=== PATIENT | male | born 1975 | race Caucasian/White ===

== ENCOUNTER 2024-02-05 22:44 | Emergency (ER) | payer OTHER, SELFPAY ==
[2024-02-05] VITALS (10 sets, daily range): BP systolic 129–182; BP diastolic 84–129; PULSE 83–94; TEMP 36.4; O2SAT 95–100; BMI 44.1
--- NOTE | 2024-02-05 23:10 | ED.CHESTPAI1 ---
HPI - Chest Pain General Chief Complaint: Chest Pain Stated Complaint: Chest Pain, Hypertension Time Seen by Provider: 02/05/24 23:07 Source: patient Mode of arrival: walk-in Limitations: no limitations History of Present Illness HPI narrative: This 48-year-old male is transferred from [facility] for evaluation of left-sided chest pain and high blood pressure. The patient states he has had a life of drug and alcohol abuse. He states that starting in his 20s he was using cocaine and then in his 30s he switched to opiates and in his 40s he was on Suboxone for approximately 7 years and stopped using opiates with occasional exceptions and started drinking alcohol and taking benzos. He has been at [facility] for 1 week and is currently detoxed off of alcohol and benzos. His blood pressure was noted to be elevated today and he was given hydroxyzine and losartan. He states that after he was given that he started to become anxious and had left-sided chest pain and began sweaty. He did not become short of breath dizzy or syncopal. He has no lower extremity pain or swelling. He request that his liver function test be checked in addition to his other blood work. He is not having any chest pain upon arrival and his blood pressure has come down to 140/100. He admits to tobacco use as well as substance abuse and alcoholism. He states he does not have a family physician in [place] where he lives and has never had a cardiac workup. At this time he denies any chest pain, he denies any dizziness shortness of breath, abdominal or back pain. He has been at [facility] for 1 week and intends to spend the next 3 weeks there as well to finish his rehab. Related Data Home Medications ?Medication ?Instructions ?Recorded ?Confirmed amlodipine 10 mg tablet 10 mg PO DAILY 02/05/24 02/05/24 clonidine HCl 0.1 mg tablet 0.1 mg PO Q8H PRN hypertensive 02/05/24 02/05/24 emergency hydroxyzine pamoate 25 mg capsule 25 mg PO Q6H PRN anxiety 02/05/24 02/05/24 ibuprofen 800 mg tablet 800 mg PO Q12H PRN pain 02/05/24 02/05/24 losartan 100 1 tab PO DAILY 02/05/24 02/05/24 mg-hydrochlorothiazide 12.5 mg tablet melatonin 10 mg tablet 10 mg PO DAILY PRN sleep 02/05/24 02/05/24 omeprazole 20 mg capsule,delayed 20 mg PO DAILY 02/05/24 02/05/24 release vitamin B complex and vitamin C 1 cap PO DAILY 02/05/24 02/05/24 no.20-folic acid 1 mg capsule (Xactium) Allergies Allergy/AdvReac Type Severity Reaction Status Date / Time paroxetine AdvReac Mild Depression Verified 02/05/24 22:57 Review of Systems ROS Status of ROS 10 or more systems reviewed and unremarkable except as noted in history and below PFSH PFSH Social History Little interest or pleasure in doing things: not at all Feeling down, depressed, or hopeless: not at all Exam Narrative Exam Narrative: Vital signs and Nursing Notes reviewed: Patient is afebrile with a normal pulse, blood pressure is elevated at 140/100, he is not hypoxic with pulse ox of 95% on room air General: Awake, alert, oriented, obese male, no respiratory distress HEENT: Normocephalic atraumatic, mucous membranes are moist and pink, eyes are clear, normal conjunctiva, vision is grossly intact Neck: Supple, no meningeal signs, no anterior or posterior cervical lymphadenopathy, no JVD Chest: Lungs are clear to auscultation with good air entry, there is no wheezing rhonchi or rales appreciated no accessory muscle use, patient is speaking in complete sentences-no chest wall tenderness to palpation CVS: Regular rate and rhythm S1-S2, no murmurs rubs or gallops, pulses are brisk and equal bilaterally ABD: Soft, nondistended, nontender, no rebound guarding or rigidity, bowel sounds are normal, no pulsatile masses appreciated Extremities: Moving all extremities, no lower extremity tenderness or swelling noted, negative Homans' sign, pulses are brisk and equal bilaterally Skin: Normal in appearance without rash,pallor, petechiae or purpura Neuro: No focal deficits, no tremors or signs of withdrawal Constitutional Vital Signs, click to edit/add: Last Vital Signs Temp 97.5 F L 02/05/24 22:48 Pulse 88 02/06/24 00:30 Resp 18 02/06/24 00:30 BP 142/89 H 02/06/24 00:30 Pulse Ox 96 02/06/24 00:30 O2 Del Method Room Air 02/05/24 23:13 Course Vital Signs Vital signs: Vital Signs Temperature 97.5 F L 02/05/24 22:48 Pulse Rate 94 H 02/05/24 22:48 Respiratory Rate 20 02/05/24 22:48 Blood Pressure 182/129 H 02/05/24 22:48 Pulse Oximetry 98 02/05/24 22:48 Oxygen Delivery Method Room Air 02/05/24 22:48 Temperature 97.5 F L 02/05/24 22:48 Pulse Rate 88 02/06/24 00:30 Respiratory Rate 18 02/06/24 00:30 Blood Pressure 142/89 H 02/06/24 00:30 Pulse Oximetry 96 02/06/24 00:30 Oxygen Delivery Method Room Air 02/05/24 23:13 MDM - Chest Pain MDM Narrative Medical decision making narrative: This 48-year-old male who is at [facility] for alcohol and benzodiazepine addiction presents for evaluation of chest pain and elevated blood pressure. The patient recently finished his detox program for alcohol and benzos. He was on Librium until yesterday. Earlier this evening when they were checking his vital signs his vital signs were elevated. He then told the staff that he had been having left-sided chest pain for 3 days. He had been given losartan and hydroxyzine prior to arrival. Upon arrival his elevated blood pressure had improved and his chest pain had resolved. EKG done upon arrival was a normal sinus rhythm with no acute findings. An IV was placed and he was medicated with 324 baby aspirin and routine labs were ordered and are reviewed. He has a normal white count and hemoglobin. Electrolytes are normal. He does have a mildly elevated AST and ALT in keeping with his history of alcohol dependence. He does have a normal BUN creatinine and bilirubin. Troponin is normal. Delta troponin is normal and D-dimer is normal. Chest x-ray was negative for acute findings. He was only medicated with the baby aspirin in the emergency department and his blood pressure has come down to 142/89. It has been as low as 129/84. The results of all of his labs and his blood pressure readings and EKG and chest x-ray were discussed with him and he feels comfortable being return to the rehab facility for further evaluation and treatment. Medical Records Data Medical records narrative: The [address] [address] XRay Report Signed Patient: ANGELIKA CEDEÑO MR#: [id number] : 1975 Acct:[id number] Age/Sex: 48 / M ADM Date: 02/05/24 Loc: ER Attending Dr: Ordering Physician: Bessy Pastrana Date of Service: 02/05/24 Procedure(s): XR chest 1V Accession Number(s): [id number] cc: Bessy Marker; Physician,Non-Staff M.D.~ [facility] [place] [id number] Patient Name: ANGELIKA CEDEÑO MRN: [id number] date: 1975 Sex: M Assigned Patient Location: ER Current Patient Location: ER Accession/Order Number: [id number] Exam Date: 02/05/2024 23:20 Report Date: 02/06/2024 00:06 At the request of: BESSY MARKER Procedure: XR chest 1V XR chest 1V 02/05/2024 11:20 PM EDT CLINICAL INDICATION: Chest pain COMPARISON: None. TECHNIQUE: Portable semiupright AP view of the chest. FINDINGS: There are no tubes or implants noted. The cardiomediastinal silhouette and pulmonary vasculature are within normal limits. No focal parenchymal opacities. No pneumothorax or pleural effusion. No displaced rib fractures. Osseous structures demonstrate degenerative changes. Soft tissues are grossly normal. XR/XR chest 1V IMPRESSION: No acute cardiopulmonary abnormality. Lab Data Labs: Lab Results 02/05/24 02/06/24 Range/Units 23:05 01:00 WBC 5.7 (4.0-11.0) 10^3/uL RBC 5.20 (4.70-6.10) 10^6/uL Hgb 16.5 (14.0-18.0) g/dL Hct 47.7 (42.0-54.0) % MCV 91.7 (80.0-94.0) fL MCH 31.7 (25.9-34.0) pg MCHC 34.6 (29.9-35.2) g/dL RDW 12.8 (11.0-15.0) % Plt Count 233 (150-450) 10^3/uL MPV 10.1 (9.5-13.5) fL Neut % (Auto) 39.3 L (43.0-75.0) % Lymph % (Auto) 39.1 (20.5-60.0) % [place] % (Auto) 15.6 H (1.7-12.0) % Eos % (Auto) 4.2 (0.9-7.0) % Baso % (Auto) 1.6 (0.2-2.0) % Neut # (Auto) 2.2 (1.4-6.5) 10^3/uL Lymph # (Auto) 2.2 (1.2-3.8) 10^3/uL [place] # (Auto) 0.9 H (0.3-0.8) 10^3/uL Eos # (Auto) 0.2 (0.0-0.7) 10^3/uL Baso # (Auto) 0.1 (0.0-0.1) 10^3/uL Abs Immat Gran (auto) 0.01 (0.00-0.03) 10^3/uL Imm/Tot Granulo (auto) 0.2 (0.0-0.5) % D-Dimer 0.37 (<=0.59) mg/L FEU Sodium 135 L (136-145) mmol/L Potassium 3.9 (3.5-5.1) mmol/L Chloride 100 (98-107) mmol/L Carbon Dioxide 26.3 (21.0-32.0) mmol/L Anion Gap 12.6 BUN 14.0 (7.0-18.0) mg/dL Creatinine 0.91 (0.70-1.30) mg/dL Est GFR ( Amer) >60 (>=60) Est GFR (Non-Af Amer) >60 (>=60) BUN/Creatinine Ratio 15.4 Glucose 104 (74-106) mg/dL Calcium 9.0 (8.5-10.1) mg/dL Total Bilirubin 0.4 (0.2-1.0) mg/dL AST 60 H (15-37) U/L ALT 126 H (16-63) U/L Alkaline Phosphatase 71 (46-116) U/L Troponin I High Sens 14.4 15.2 (4.0-76.1) pg/mL Total Protein 7.5 (6.4-8.2) g/dL Albumin 3.5 (3.4-5.0) g/dL Globulin 4.0 g/dL Albumin/Globulin Ratio 0.9 ECG Data Attestation: I personally reviewed and interpreted this ECG as follows: (Sinus rhythm at 90 bpm, normal axis, nonspecific ST changes, no acute ST segment elevation or T wave inversion) Heart Score History: Moderately Suspicious ECG: Normal Age: >45-<65 years Risk Factors: 1 or 2 Risk Factors Troponin: <Normal Limit Total Heart Score Recommendations & Risks:: 3 Discharge Plan Discharge Chief Complaint: Chest Pain Clinical Impression: Chest pain, Elevated blood pressure reading Patient Disposition: Home, Self-Care Time of Disposition Decision: 01:38 Condition: Good Prescriptions / Home Meds: No Action ibuprofen 800 mg tablet 800 mg PO Q12H PRN (Reason: pain) losartan-hydrochlorothiazide 100-12.5 mg tablet 1 tab PO DAILY clonidine HCl 0.1 mg tablet 0.1 mg PO Q8H PRN (Reason: hypertensive emergency) amlodipine 10 mg tablet 10 mg PO DAILY melatonin 10 mg tablet 10 mg PO DAILY PRN (Reason: sleep) omeprazole 20 mg capsule,delayed release(DR/EC) 20 mg PO DAILY hydroxyzine pamoate 25 mg capsule 25 mg PO Q6H PRN (Reason: anxiety) Wescaps 1 mg capsule 1 cap PO DAILY Print Language: Kyrgyz Instructions: Chest Pain (ED), Hypertension (ED) Referrals: Physician,Non-Staff, MD [Primary Care Provider] - 1 week
--- NOTE | 2024-02-05 23:16 | XR_ITS ---
[facility] [place] [id number] Patient Name: ANGELIKA CEDEÑO MRN: [id number] date: 1975 Sex: M Assigned Patient Location: ER Current Patient Location: ER Accession/Order Number: [id number] Exam Date: 02/05/2024 23:20 Report Date: 02/06/2024 00:06 At the request of: BESSY MARKER Procedure: XR chest 1V XR chest 1V 02/05/2024 11:20 PM EDT CLINICAL INDICATION: Chest pain COMPARISON: None. TECHNIQUE: Portable semiupright AP view of the chest. FINDINGS: There are no tubes or implants noted. The cardiomediastinal silhouette and pulmonary vasculature are within normal limits. No focal parenchymal opacities. No pneumothorax or pleural effusion. No displaced rib fractures. Osseous structures demonstrate degenerative changes. Soft tissues are grossly normal. XR/XR chest 1V IMPRESSION: No acute cardiopulmonary abnormality. Electronically authenticated by: KEI VILLAVICENCIO Date: 02/06/2024 00:06
[2024-02-05 23:22] LABS: Basophils Absolute Auto 0.1 10^3/uL (0.0-0.1); Basophils Percent Auto 1.6 % (0.2-2.0); Eosinophils Absolute Auto 0.2 10^3/uL (0.0-0.7); Eosinophils Percent Auto 4.2 % (0.9-7.0); Hematocrit 47.7 % (42.0-54.0); Hemoglobin 16.5 g/dL (14.0-18.0); Immature Granulocytes Abs Auto 0.01 10^3/uL (0.00-0.03); Immature Granulocytes Pct Auto 0.2 % (0.0-0.5); Lymphocytes Absolute Auto 2.2 10^3/uL (1.2-3.8); Lymphocytes Percent Auto 39.1 % (20.5-60.0); Mean Corpuscular HGB Conc 34.6 g/dL (29.9-35.2); Mean Corpuscular Hemoglobin 31.7 pg (25.9-34.0); Mean Corpuscular Volume 91.7 fL (80.0-94.0); Mean Platelet Volume 10.1 fL (9.5-13.5); Monocytes Absolute Auto 0.9 10^3/uL (0.3-0.8); Monocytes Percent Auto 15.6 % (1.7-12.0); Neutrophils Absolute Auto 2.2 10^3/uL (1.4-6.5); Neutrophils Percent Auto 39.3 % (43.0-75.0); Platelet Count 233 10^3/uL (150-450); Red Cell Distribution Width 12.8 % (11.0-15.0); White Blood Count 5.7 10^3/uL (4.0-11.0)
[2024-02-05] MEDS: ASPIRIN 81 MG TAB.CHEW 324 MG PO (23:32)
[2024-02-05] MEDS: 0.9 % SODIUM CHLORIDE 1,000 ML 125 ML IV (23:33)
[2024-02-05 23:42] LABS: D Dimer 0.37 mg/L FEU (<=0.59)
[2024-02-05 23:43] LABS: Alanine Aminotransferase 126 U/L (16-63); Albumin Globulin Ratio 0.9; Albumin Level 3.5 g/dL (3.4-5.0); Alkaline Phosphatase 71 U/L (46-116); Anion Gap 12.6; Aspartate Amino Transferase 60 U/L (15-37); BUN Creatinine Ratio 15.4; Bilirubin Total 0.4 mg/dL (0.2-1.0); Carbon Dioxide 26.3 mmol/L (21.0-32.0); Chloride 100 mmol/L (98-107); Estimated GFR (African America >60 (>=60); Estimated GFR (Non-African Ame >60 (>=60); Glucose 104 mg/dL (74-106); Potassium 3.9 mmol/L (3.5-5.1); Sodium 135 mmol/L (136-145); Total Protein 7.5 g/dL (6.4-8.2)
[2024-02-05 23:46] LABS: Troponin I High Sensitivity 14.4 pg/mL (4.0-76.1)
[2024-02-06] VITALS (10 sets, daily range): BP systolic 134–147; BP diastolic 82–96; PULSE 79–88; O2SAT 96–98
[2024-02-06 01:28] LABS: Troponin I High Sensitivity 15.2 pg/mL (4.0-76.1)
--- NOTE | 2024-02-06 01:53 | PC.NURSE ---
Report called to [facility].
--- NOTE | 2024-02-06 05:46 | ECG_ITS ---
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
== END 2024-02-06 02:14 | disposition home or self-care (01) ==
PROVIDERS: Emergency Provider Emergency Medicine
DX: R07.9 Chest pain, unspecified (principal); I10 Essential (primary) hypertension; F10.20 Alcohol dependence, uncomplicated; F13.20 Sedative, hypnotic or anxiolytic dependence, uncomplicated; F17.200 Nicotine dependence, unspecified, uncomplicated
CPT/HCPCS: 36415; 71045; 80053; 84484; 85025; 85378; 93005; 99285